=== PATIENT | female | born 1955 | race Caucasian/White ===

== ENCOUNTER 2016-06-30 10:07 | Day surgery (SDC) ==
[2013-11-08 20:41] VITALS: BMI 25.8
[2016-06-30] MEDS ORDERED: SUBLIMAZE ONE (10:45)
[2016-06-30] MEDS ORDERED: VERSED ONE (10:45)
[2016-06-30] MEDS ORDERED: DIPRIVAN 20 ML VIAL IVP ONE (10:45)
[2016-06-30] MEDS ORDERED: LIDOCAINE HCL 2% LUER-JET ONE (10:45)
[2016-06-30 12:22] VITALS: BP 122/79; TEMP 99
--- NOTE | 2016-07-01 10:46 | OP ---
PROCEDURE: EGD (ESOPHAGOGASTRODUODENOSCOPY) WITH BIOPSY. ENDOSCOPIST: Fredi BENNETT M.D. INDICATION: Reflux INSTRUMENT: GIFH-190. MEDICATION: PER ANESTHESIA. PROCEDURE: The patient was positioned for endoscopy. The oropharynx was sprayed with Cetacaine spray and the endoscope was advanced through the bite block into the esophagus and from there advanced to the duodenum. The duodenum was normal. The pylorus was patent. The antrum is normal. We took biopsies for Helicobacter. Retroflex reveals a normal cardia, small hiatus hernia, multiple fundic gland polyps are also noted all of these are in the 5mm range. The Z-line was regular at 37cm. The remaining esophagus was normal. PLAN: 1. Suggest that she continue her current medications. MTDD
--- NOTE | 2016-07-01 10:46 | OP ---
PROCEDURE: COLONOSCOPY TO THE CECUM. ENDOSCOPIST: Fredi BENNETT M.D. INDICATION: History of adenomatous polyps. Date of last colonoscopy is greater than 5 years. INSTRUMENT: Zeo-190. MEDICATION: PER ANESTHESIA. PROCEDURE: The patient was positioned for colonoscopy. The digital rectal exam was negative. The colonoscope was inserted through the anus and advanced to the cecum. The cecum was identified using the ileocecal valve and the appendiceal orifice as landmarks. The scope was slowly withdrawn through an adequately prepped colon. Careful inspection made of each colonic segment as scope withdrawn in a circumferential fashion. Care is taken to inspect the proximal side of ileocecal valves, haustral folds, flexures and rectal valves. Scattered diverticula noted in the left colon. The retroflex exam was otherwise normal. The patient's tolerated the procedure well without immediate complication. Withdrawal time 8 minutes and 36 seconds PLAN: 1. Suggest repeat colonoscopy in 5 years. MTDD
== END 2016-06-30 12:24 | disposition home or self-care (01) ==
LOC: SURG 10:07
PROVIDERS: ATTEND Internal Medicine Gastroenterology
DX: Z86.010 Personal history of colon polyps (principal); K31.7 Polyp of stomach and duodenum; K57.30 Diverticulosis of large intestine without perforation or abscess without bleeding; K21.9 Gastro-esophageal reflux disease without esophagitis; K44.9 Diaphragmatic hernia without obstruction or gangrene
CPT/HCPCS: 87339

== ENCOUNTER 2016-07-11 07:53 | Outpatient (CLI) ==
[2013-11-08 20:41] VITALS: BMI 25.8
--- NOTE | 2016-07-11 10:00 | MAMMO ---
EXAM: Digital screening mammogram HISTORY: Screening COMPARISON: 07/04/2015 FINDINGS: Digital MLO and CC views of the right and left breast were performed. There are scatter ed fibroglandular densities. Bilateral breast implants are intact. Stable benign breast calcificati ons. There is no evidence for mass, asymmetry, distortion, or suspicious calcifications in either br east. IMPRESSION: 1. No evidence of malignancy in the right or left breast. 2. Annual screening mammogram is recommended in one year. BIRADS category 2, benign
== END 2016-07-11 07:54 | disposition home or self-care (01) ==
LOC: RAD 07:53
PROVIDERS: ATTEND Family Medicine
DX: Z12.31 Encounter for screening mammogram for malignant neoplasm of breast (principal)

== ENCOUNTER 2016-08-27 13:47 | Outpatient (CLI) ==
[2013-11-08 20:41] VITALS: BMI 25.8
--- NOTE | 2016-08-27 14:23 | DI ---
EXAM: RIGHT FOOT, 3 VIEWS HISTORY: Foot swelling FINDINGS: No acute fracture or joint dislocation. There is no joint effusion. There is mild arthr opathy at the first metatarsophalangeal joint and the forefoot articulations. Soft tissues grossly unremarkable. IMPRESSION: No acute bone or joint abnormality identified radiographically.
--- NOTE | 2016-08-27 14:36 | DI ---
EXAM: Three views of the left foot. History: Left foot pain and swelling. Findings: No acute fracture or dislocation. Minimal calcaneal enthesiopathy. Mild narrowing of th e first MTP joint. Mild to moderate degenerative changes at the mid foot with prominent dorsal oste ophytes. Impression: No acute osseous abnormality. Osteoarthritis most noticeable at the mid foot.
== END 2016-08-27 13:48 | disposition home or self-care (01) ==
LOC: RAD 13:47
PROVIDERS: ATTEND Nurse Practitioner Family
DX: M79.671 Pain in right foot (principal); R22.43 Localized swelling, mass and lump, lower limb, bilateral; E75.6 Lipid storage disorder, unspecified

== ENCOUNTER 2016-08-28 11:46 | Outpatient (CLI) ==
[2013-11-08 20:41] VITALS: BMI 25.8
[2016-08-28 12:26] LABS: BASOPHILS % (AUTO) 0.8 % (0.0-3.0); EOSINOPHILS # (AUTO) 0.2 K/ul (0.0-0.7); EOSINOPHILS % (AUTO) 4.6 % (0.0-7.0); HEMATOCRIT 40.4 % (37.0-47.0); HEMOGLOBIN 13.4 g/dl (12.0-16.0); IMMATURE GRANULOCYTE % (AUTO) 0.2 % (0.0-5.0); LYMPHOCYTES # (AUTO) 1.6 K/uL (0.60-3.4); MEAN CORPUSCULAR HGB CONC 33.2 (31.8-35.4); MEAN CORPUSCULAR VOLUME 87.4 fl (81.0-99.0); MONOCYTES # (AUTO) 0.5 K/uL (0.4-2.0); NEUTROPHILS # (AUTO) 2.7 K/ul (2.0-6.9); NEUTROPHILS % (AUTO) 53.4; PLATELET COUNT 254 10^3/uL (140-440); RED BLOOD COUNT 4.62 10^6/ul (4.20-5.40)
[2016-08-28 13:22] LABS: ALBUMIN 3.8 g/dL (3.4-5.0); ALBUMIN/GLOBULIN RATIO 1.12; ANION GAP 12.8; BILIRUBIN,TOTAL 0.44 mg/dL (0.00-1.20); BUN/CREATININE RATIO 12.84; CHOL/HDL RATIO 4.8 (4.5-5.5); CREATININE 1.09 mg/dL (0.60-1.30); POTASSIUM 3.8 mmol/L (3.5-5.10); TOTAL PROTEIN 7.2 g/dL (5.8-8.1)
== END 2016-08-28 11:47 | disposition home or self-care (01) ==
LOC: LAB 11:46
PROVIDERS: ATTEND Nurse Practitioner Family
DX: M79.671 Pain in right foot (principal); R22.43 Localized swelling, mass and lump, lower limb, bilateral; E75.6 Lipid storage disorder, unspecified
CPT/HCPCS: 36415; 80053; 80061; 85025

== ENCOUNTER 2016-11-20 10:29 | Outpatient (RCR) ==
[2013-11-08 20:41] VITALS: BMI 25.8
--- NOTE | 2016-11-21 15:54 | RS.OPPTEV2 ---
Date of Note: 11/20/16 Visit #: 1 Date of Evaluation: 11/20/16 Payer Source: Medicaid Treatment Diagnosis: Low back pain, radiculopathy of lumbar region History of Condition/Mechanism of Injury:: Reports onset of radiating symptoms about two years ago when she rode in a car a very long distance. Prior Level of Function.....Patient was independent with: ADL's, Self Care, Work /Vocation, Caregiving, Ambulation/Mobility, Community Integration/Access Functional Limitations: Lifting, Sitting, Bending Current Subjective/complaints:: Patient reports having low back pain and some radiating symptoms. She reports the low back pain is constant, but the radiating symptoms are present more with prolonged sitting. States she has to move or try to change positions if she sits for very long, such as in buddhism or riding in a car. She denies any tingling or numbness in the LE's. States when she has had the radiating symptoms, they are usually more in the right LE and down the posterior aspect of the leg. States she will be riding to [place] in a car in about two weeks. Medical History Medical History: Arthritis (knees and feet) Surgical History: Cholecystectomy, Hysterectomy Surgical History Comments:: Left foot surgery X 2, Right knee surgeries X 4. Hx Home Medications: Meloxicam Patient's Goals: Her goal is to get relief of pain. Pain Assessment - Pain Description Pain Location: low back Current Pain Intensity: 3/10 Worst Pain Intensity: 7/10 Functional Outcome Measure Oswestry LBP: 32 - G Codes & Severity Modifier G Codes & Modifier: NA Source of G Code score: NA Gait - Gait Pattern General Gait Pattern Observation: No Deviations/Normal - ROM Lumbar Flexion: Hand reach to Mid-Shins Sidebending to Left: Reach to Lateral Joint Line Sidebending to Right: Reach to Lateral Joint Line Comments: No increased pain or radiating symptoms reported with lumbar AROM. Decreased mobility of the lumbar spine is observed during forward flexion. - Special Tests LATRICE Test: Negative Left, Negative Right SLR Test: Negative Left, Negative Right Seated Dural Stretch Test: Negative Left, Negative Right SI Joint Compression: Negative SI Joint Distraction: Negative Palpation Comments:: Reports tenderness over the right superior gluteal muscles. Reports no significant tenderness at either SI joint. No tenderness reported with pressure over the sacrum with the patient in sitting. Palpation to the lumbar spine demonstrates moderate increased muscle tone. Sensation - Sensation Right Lower Extremity: Intact/Normal Left Lower Extremity: Intact/Normal Additional Comments: Additional Comments: SLR bilaterally 60-65 degrees. Interventions - Exercise/Activities/Manual Therapy Exercises/Activities: Patient instructed in prone lying, flat and LUCINA for 5-10 mins. Also advised to perform standing hip extesion following any prolonged sitting. Manual Therapy: NA HOME EXERCISE PROGRAM: standing hip extension following any prolonged sitting.prone lying, flat and LUCINA for 5-10 mins. - Charges Total Direct Minutes: 45 mins Total Treatment Time: 45 mins Procedures billed for this date of service:: LUKE Low Assessment Assessment: Patient presents to therapy with a diagnosis of radiculopathy of the lumbar region. She reports constant low back pain and radiating symptoms mostly with sitting. Demonstrates hypomobility of the lumbar spine and tenderness at the superior gluteal muscles. She will benefit from exercises emphasizing lumbar extension to reduce symptoms that present to be disc related. She may also benefit from mechanical traction, manual therapy, and stretching to improve lumbar spine mobility and decrease her pain. Patient Education: Education of diagnosis, Body/Joint mechanics, Home Exercise Program, Home Safety, Education of Plan of Care Rehab Potential: Good Short Term Goals Goal #1: LE radiating symptoms localized. Goal to be met by: 12/05/16 Goal #2: Patient to demonstrates minimal lumbar muscle tone. Goal to be met by: 12/05/16 Goal #3: Pt able to tolerate prolonged sitting with minimal discomfort. Goal to be met by: 12/05/16 Legal Librarian Goals Goal #1: Patient knows HEP and to continue ex's to maintain functional level at D/C. Goal to be met by: 01/20/17 Goal #2: Score on Oswestry LBP scale improved to 12. Goal to be met by: 01/20/17 Goal #3: Patient able to tolerate prolonged sitting without discomfort. Goal to be met by: 01/20/17 Goal #4: Pt able to perform all daily activities with minimal to no LBP. Goal to be met by: 01/20/17 Plan - Treatment to be Provided Procedures: Therapeutic Exercises, Therapeutic Activity, Manual Therapy, Patient Education Modalities: Electrical Stimulation, Ultrasound/Phonophoresis, Class IV Laser, Cryotherapy, Hot Packs, Mechanical Traction (lumbar traction) - Treatment Plan Frequency: 3 X week Duration: 6 weeks ORDER # VISITS AND/OR THROUGH DATE: 01/20/17 - Treatment Code (1) Low back pain Qualifiers: Chronicity: unspecified Back pain laterality: unspecified Sciatica presence: unspecified whether sciatica present Qualified Description: Low back pain, unspecified back pain laterality, unspecified chronicity, with sciatica presence unspecified Qualifier Code(s): (M54.5) Low back pain (2) Radiculopathy, lumbar region Comments: M54.16
== END 2016-11-24 ==
PROVIDERS: ATTEND Radiology Diagnostic Radiology
DX: M54.16 Radiculopathy, lumbar region (principal)

== ENCOUNTER 2016-12-03 08:15 | Outpatient (RCR) ==
[2015-11-11 11:42] VITALS: BMI 25.8
--- NOTE | 2016-11-25 09:34 | RS.OPPTDN ---
Subjective Date of Note: 11/25/16 Visit #: 2 Date of Evaluation: 11/20/16 Payer Source: Medicaid Treatment Diagnosis: Low back pain, radiculopathy of lumbar region Current Subjective/complaints:: Reports her back pain is more on the R today, and slightly in the R gluteal area. Pain Assessment - Pain Description Pain Location: low back Pain Description: Dull, Aching Current Pain Intensity: 2.5/10 - Treatment Modality: Electrical Stim Unattended Parameters/Method Applied: 20 mins. high volt to lumbar,channel 1 @ 235 - 260 pv ,channel 2 @ 245 - 280 pv. - Heat/Cryotherapy Treatment: Hot Pack (concurrent with e-stim) Interventions - Exercise/Activities/Manual Therapy Exercises/Activities: 35 mins. total of prone exercises ,including LUCINA,prone partial push-ups,prone hip flexor stretching.Supine exercises of pelvic tilts, SKTC,DKTC,90/90 hamstring stretches,piriformis stretches. Total minutes of Exercise: 35 Manual Therapy: NA Total minutes of Manual Therapy: 0 HOME EXERCISE PROGRAM: standing hip extension following any prolonged sitting.prone lying, flat and LUCINA for 5-10 mins. - Charges Total Direct Minutes: 35 Total Treatment Time: 55 Procedures billed for this date of service:: hp,e-stim,ex 2 Assessment: Patient tolerates exercises well,reports relief with prone extension exercises.She also tolerates supine flexion exercises,with report of slight increase of pain in the R lumbar area when doing L SKTC.She has good understanding of stretch discomfort as opposed to sharp pain.He rhamstrings and hip flexors have minimal tightness present. Patient Education: Education of diagnosis, Body/Joint mechanics, Home Exercise Program, Home Safety, Activity Modification, Education of Plan of Care Short Term Goals Goal #1: LE radiating symptoms localized. Goal to be met by: 12/05/16 Progress towards Goal:: Progressing Goal #2: Patient to demonstrates minimal lumbar muscle tone. Goal to be met by: 12/05/16 Goal #3: Pt able to tolerate prolonged sitting with minimal discomfort. Goal to be met by: 12/05/16 General Store Manager Goals Goal #1: Patient knows HEP and to continue ex's to maintain functional level at D/C. Goal to be met by: 01/20/17 Progress towards goal: Progressing Goal #2: Score on Oswestry LBP scale improved to 12. Goal to be met by: 01/20/17 Goal #3: Patient able to tolerate prolonged sitting without discomfort. Goal to be met by: 01/20/17 Goal #4: Pt able to perform all daily activities with minimal to no LBP. Goal to be met by: 01/20/17 Plan PLAN OF CARE EXPIRES ON:: 01/20/17 ORDER # VISITS AND/OR THROUGH DATE: 01/20/17 PLAN: Continue Plan of Care
--- NOTE | 2016-11-27 09:45 | RS.OPPTDN ---
Subjective Date of Note: 11/27/16 Visit #: 3 Date of Evaluation: 11/20/16 Payer Source: Medicaid Treatment Diagnosis: Low back pain, radiculopathy of lumbar region Current Subjective/complaints:: Reports relief for the day of her last treatment.Yesterday was more painful,but slept better last night. Pain Assessment - Pain Description Pain Location: low back Pain Description: Dull, Aching Current Pain Intensity: not rated - Treatment Modality: Electrical Stim Unattended Parameters/Method Applied: 20 mins. high volt to back,channel 1 @ 225 - 260 pv, channel 2 @ 245 - 280 pv. Patient Position: Prone - Heat/Cryotherapy Treatment: Hot Pack (concurrent with e-stim) Interventions - Exercise/Activities/Manual Therapy Exercises/Activities: 20 mins. total of prone exercises ,including LUCINA,prone partial push-ups, .Supine exercises of pelvic tilts,SKTC,DKTC,90/90 hamstring stretches using contract-relax method,piriformis stretches. Total minutes of Exercise: 20 Manual Therapy: NA Total minutes of Manual Therapy: 0 HOME EXERCISE PROGRAM: standing hip extension following any prolonged sitting.prone lying, flat and LUCINA for 5-10 mins. - Charges Total Direct Minutes: 20 Total Treatment Time: 40 Procedures billed for this date of service:: hp,e-stim,ex 1 Assessment: Patient reports no increased back pain with stretch or strength exercises today.She has good return demo of each exercise.Her hamstring extensibility improves after contract-relax method used.She is attentive to HEP recommendations. Patient Education: Education of diagnosis, Body/Joint mechanics, Home Exercise Program, Home Safety, Activity Modification, Education of Plan of Care Patient demonstrates compliance with HEP?: Yes Short Term Goals Goal #1: LE radiating symptoms localized. Goal to be met by: 12/05/16 Progress towards Goal:: Partially Met Goal #2: Patient to demonstrates minimal lumbar muscle tone. Goal to be met by: 12/05/16 Progress towards Goal:: Progressing Goal #3: Pt able to tolerate prolonged sitting with minimal discomfort. Goal to be met by: 12/05/16 Progress towards Goal:: Progressing Cad Design Engineer Goals Goal #1: Patient knows HEP and to continue ex's to maintain functional level at D/C. Goal to be met by: 01/20/17 Progress towards goal: Progressing Goal #2: Score on Oswestry LBP scale improved to 12. Goal to be met by: 01/20/17 Goal #3: Patient able to tolerate prolonged sitting without discomfort. Goal to be met by: 01/20/17 Goal #4: Pt able to perform all daily activities with minimal to no LBP. Goal to be met by: 01/20/17 Progress towards goal: Progressing Plan PLAN OF CARE EXPIRES ON:: 01/20/17 ORDER # VISITS AND/OR THROUGH DATE: 01/20/17 PLAN: Continue Plan of Care
--- NOTE | 2016-12-01 09:17 | RS.OPPTDN ---
Subjective Date of Note: 12/01/16 Visit #: 4 Date of Evaluation: 11/20/16 Payer Source: Medicaid Treatment Diagnosis: Low back pain, radiculopathy of lumbar region Current Subjective/complaints:: Patient reports soreness is slightly elevated today,compared to last visit.She feels she possibly slept in awkward position last night. Pain Assessment - Pain Description Pain Location: low back Pain Description: Dull, Aching Current Pain Intensity: 3/10 - Treatment Modality: Electrical Stim Unattended Parameters/Method Applied: 20 mins. to back,channel 1 @ 280 - 320 pv,channel 2 @ 240 - 325 pv. Patient Position: Prone - Heat/Cryotherapy Treatment: Hot Pack (concurrent with e-stim) Interventions - Exercise/Activities/Manual Therapy Exercises/Activities: 20 mins. total of core exercises seated on therapy ball doing pelvic tilts,alternating hip flexion,alternating UE/LE flexion.Ended session doing corner stretches for pecs. stretch and trunk extension. Total minutes of Exercise: 20 Manual Therapy: NA Total minutes of Manual Therapy: 0 HOME EXERCISE PROGRAM: standing hip extension following any prolonged sitting.prone lying, flat and LUCINA for 5-10 mins. - Charges Total Direct Minutes: 20 Total Treatment Time: 40 Procedures billed for this date of service:: hp,e-stim,ex 1 Assessment: Patient tolerates exercises well,has good return demo of each.She reports her pain is localized to the back at rest.She has slight elevation of pain in the R hip while doing exercises on the therapy ball.She continues to be attentive to recommendations from the therapy staff. Patient Education: Body/Joint mechanics, Home Exercise Program Patient demonstrates compliance with HEP?: Yes Short Term Goals Goal #1: LE radiating symptoms localized. Goal to be met by: 12/05/16 Progress towards Goal:: Met Goal #2: Patient to demonstrates minimal lumbar muscle tone. Goal to be met by: 12/05/16 Progress towards Goal:: Progressing Goal #3: Pt able to tolerate prolonged sitting with minimal discomfort. Goal to be met by: 12/05/16 Progress towards Goal:: Progressing Long-Term Goals Goal #1: Patient knows HEP and to continue ex's to maintain functional level at D/C. Goal to be met by: 01/20/17 Progress towards goal: Progressing Goal #2: Score on Oswestry LBP scale improved to 12. Goal to be met by: 01/20/17 Goal #3: Patient able to tolerate prolonged sitting without discomfort. Goal to be met by: 01/20/17 Progress towards goal: Progressing Goal #4: Pt able to perform all daily activities with minimal to no LBP. Goal to be met by: 01/20/17 Progress towards goal: Progressing Plan PLAN OF CARE EXPIRES ON:: 01/20/17 ORDER # VISITS AND/OR THROUGH DATE: 01/20/17 PLAN: Progress Exercises
--- NOTE | 2016-12-02 09:30 | RS.OPPTDN ---
Subjective Date of Note: 12/02/16 Visit #: 5 Date of Evaluation: 11/20/16 Payer Source: Medicaid Treatment Diagnosis: Low back pain, radiculopathy of lumbar region Current Subjective/complaints:: Reports the back feels a little better today.She is doing her stretches. Pain Assessment - Pain Description Pain Location: low back Pain Description: Dull, Aching Current Pain Intensity: 2/10 - Treatment Modality: Electrical Stim Unattended Parameters/Method Applied: 20 mins. high volt to lumbar,channel 1 and 2 @ 225 - 245 pv. Patient Position: Prone - Heat/Cryotherapy Treatment: Hot Pack (concurrent with e - stim) Interventions - Exercise/Activities/Manual Therapy Exercises/Activities: 20 mins. total of pelvic tilts,SKTC,DKTC,90/90 hamstring stretches using contract - relax method.Seated postural exercises of trunk extension ,combined with rowing motion,postural pullbacks. Total minutes of Exercise: 20 Manual Therapy: NA Total minutes of Manual Therapy: 0 HOME EXERCISE PROGRAM: standing hip extension following any prolonged sitting.prone lying, flat and LUCINA for 5-10 mins. - Charges Total Direct Minutes: 20 Total Treatment Time: 40 Procedures billed for this date of service:: hp,e-stim,ex 1 Assessment: Patient reports less back pain today,is tolerating daily tasks better,depending upon the position she is in,or how long the tasks takes to complete.She does have improved awareness of her posture. Patient Education: Body/Joint mechanics, Home Exercise Program, Education of Plan of Care Patient demonstrates compliance with HEP?: Yes Short Term Goals Goal #1: LE radiating symptoms localized. Goal to be met by: 12/05/16 Progress towards Goal:: Met Goal #2: Patient to demonstrates minimal lumbar muscle tone. Goal to be met by: 12/05/16 Progress towards Goal:: Progressing Goal #3: Pt able to tolerate prolonged sitting with minimal discomfort. Goal to be met by: 12/05/16 Progress towards Goal:: Progressing Prison Goals Goal #1: Patient knows HEP and to continue ex's to maintain functional level at D/C. Goal to be met by: 01/20/17 Progress towards goal: Partially Met Goal #2: Score on Oswestry LBP scale improved to 12. Goal to be met by: 01/20/17 Goal #3: Patient able to tolerate prolonged sitting without discomfort. Goal to be met by: 01/20/17 Progress towards goal: Progressing Goal #4: Pt able to perform all daily activities with minimal to no LBP. Goal to be met by: 01/20/17 Progress towards goal: Progressing Plan PLAN OF CARE EXPIRES ON:: 01/20/17 ORDER # VISITS AND/OR THROUGH DATE: 01/20/17 PLAN: Continue Plan of Care
--- NOTE | 2016-12-03 09:34 | RS.OPPTDC ---
Date of Discharge: 12/03/16 Date of Evaluation: 11/20/16 Number of Visits: 6 Treatment Diagnosis: Low back pain, radiculopathy of lumbar region Current Level of Function: Independent in community with intermittent back pain. Current Complaints/Gains: Patient reports the stretch exercises help give her relief.She also has TENS unit at home.She is aware of D/c plan today. Pain Assessment - Pain Description Pain Location: low back Pain Description: Dull, Aching Current Pain Intensity: 2/10 Functional Outcome Measure Oswestry LBP: 24 - G Codes & Severity Modifier G Codes & Modifier: NA Source of G Code score: NA Observation - Observation Posture: Normal Gait - Gait Pattern General Gait Pattern Observation: No Deviations/Normal - Treatment Modality: Electrical Stim Unattended Parameters/Method Applied: 20 mins. @ 260 pv to low back. Patient Position: Prone - Heat/Cryotherapy Treatment: Hot Pack (concurrent with e-stim) Interventions - Exercise/Activities/Manual Therapy Exercises/Activities: 5 mins. HEP review. Total minutes of Exercise: 5 Manual Therapy: NA Total minutes of Manual Therapy: 0 HOME EXERCISE PROGRAM: standing hip extension following any prolonged sitting.prone lying, flat and LUCINA for 5-10 mins. - Charges Total Direct Minutes: 5 Total Treatment Time: 25 Procedures billed for this date of service:: hp,e-stim Assessment Assessment: Patient has met rehab potential currently,with good understanding of HEP ,and this can be done independently.She enters /exits clinic with normal posture and gait pattern. Patient Education: Education of diagnosis, Body/Joint mechanics, Home Exercise Program, Home Safety, Activity Modification, Education of Plan of Care Rehab Potential: Good Short Term Goals Goal #1: LE radiating symptoms localized. Goal to be met by: 12/05/16 Progress towards Goal:: Met Goal #2: Patient to demonstrates minimal lumbar muscle tone. Goal to be met by: 12/05/16 Progress towards Goal:: Met Goal #3: Pt able to tolerate prolonged sitting with minimal discomfort. Goal to be met by: 12/05/16 Progress towards Goal:: Partially Met Care Home Goals Goal #1: Patient knows HEP and to continue ex's to maintain functional level at D/C. Goal to be met by: 01/20/17 Progress towards goal: Met Goal #2: Score on Oswestry LBP scale improved to 12. Goal to be met by: 01/20/17 Progress towards goal: Met Goal #3: Patient able to tolerate prolonged sitting without discomfort. Goal to be met by: 01/20/17 Progress towards goal: Progressing Goal #4: Pt able to perform all daily activities with minimal to no LBP. Goal to be met by: 01/20/17 Progress towards goal: Progressing Plan Reason for Discharge:: No Further Skilled Therapy Indicated
== END 2016-12-25 ==
PROVIDERS: ATTEND Radiology Diagnostic Radiology
DX: M54.16 Radiculopathy, lumbar region (principal)

== ENCOUNTER 2017-01-02 09:48 | Outpatient (CLI) ==
[2015-11-11 11:42] VITALS: BMI 25.8
--- NOTE | 2017-01-02 10:16 | DI ---
EXAM: Radiographs, left elbow HISTORY: Left elbow lateral epicondylitis. COMPARISON: None available. TECHNIQUE: Three views. FINDINGS: Bone mineralization is normal. There is no fracture or dislocation. The joint spaces ar e maintained. No focal soft tissue abnormality is seen. IMPRESSION: No radiographic abnormality of the left elbow.
== END 2017-01-02 09:49 | disposition home or self-care (01) ==
LOC: RAD 09:48
PROVIDERS: ATTEND Nurse Practitioner Family
DX: M77.12 Lateral epicondylitis, left elbow (principal)

== ENCOUNTER 2017-01-14 08:30 | Outpatient (CLI) ==
[2015-11-11 11:42] VITALS: BMI 25.8
[2017-01-14 08:54] LABS: BASOPHILS % (AUTO) 0.6 % (0.0-3.0); EOSINOPHILS # (AUTO) 0.3 K/ul (0.0-0.7); EOSINOPHILS % (AUTO) 4.9 % (0.0-7.0); HEMATOCRIT 38.7 % (37.0-47.0); HEMOGLOBIN 12.8 g/dl (12.0-16.0); IMMATURE GRANULOCYTE % (AUTO) 0.4 % (0.0-5.0); LYMPHOCYTES # (AUTO) 1.7 K/uL (0.60-3.4); LYMPHOCYTES % (AUTO) 32.8 (10.0-50.0); MEAN CORPUSCULAR HEMOGLOBIN 29.6 pg (27.0-31.0); MEAN CORPUSCULAR HGB CONC 33.1 (31.8-35.4); MEAN CORPUSCULAR VOLUME 89.6 fl (81.0-99.0); MONOCYTES # (AUTO) 0.4 K/uL (0.4-2.0); MONOCYTES % (AUTO) 8.1 (0-10); NEUTROPHILS # (AUTO) 2.8 K/ul (2.0-6.9); NEUTROPHILS % (AUTO) 53.2; PLATELET COUNT 297 10^3/uL (140-440); RED BLOOD COUNT 4.32 10^6/ul (4.20-5.40); WHITE BLOOD COUNT 5.31 K/ul (4.6-10.2)
[2017-01-14 09:12] LABS: ANION GAP 12.6; BUN/CREATININE RATIO 13.07; CALCIUM 10.9 mg/dL (8.2-10.2); CREATININE 1.3 mg/dL (0.60-1.30); POTASSIUM 3.6 mmol/L (3.5-5.10); URIC ACID 7.8 mg/dL (2.4-6.0)
[2017-01-14 10:51] LABS: ERYTHROCYTE SEDIMENTATION RATE 14 mm/hr (0-20); ESR INTERNAL QC INTERNAL QC VALID
== END 2017-01-14 08:31 | disposition home or self-care (01) ==
LOC: LAB 08:30
DX: R60.9 Edema, unspecified (principal)
CPT/HCPCS: 36415; 80048; 84550; 85025; 85651; 86140

== ENCOUNTER 2017-04-23 09:00 | Outpatient (RCR) ==
[2015-11-11 11:42] VITALS: BMI 25.8
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
--- NOTE | 2017-04-21 13:46 | RS.OPPTDN ---
Subjective Date of Note: 04/21/17 Visit #: 2 Date of Evaluation: 04/16/17 Payer Source: Medicaid Treatment Diagnosis: Right knee pain Current Subjective/complaints:: Patient continues to report pain at the medial aspect of the right knee joint. Pain Assessment - Pain Description Pain Location: Right medial knee joint Pain Description: Aching - Treatment Modality: Ultrasound Parameters/Method Applied: [id number] at 1.5w/cm2 with 10% hydrocortisone cream to the right knee medial joint line prior to EX. Patient Position: Supine Interventions - Exercise/Activities/Manual Therapy Exercises/Activities: Assisted stretching of right hamstrings, SKTC, and heel cords. Quad sets. SLR and SLR/VMO. Isometric right ankle df. Red theraband for right ankle df, hip add and hip abd, all 2s/10reps. Ended with additional hamstring stretching. Reveiwed dx, joint mechanics, and HEP. Total minutes of Exercise: 30mins Manual Therapy: NA HOME EXERCISE PROGRAM: multi angle SLR's: flexion, adduction, and abduction, and hip adduction isometrics. Quad sets, SLR, SLR/VMO - Charges Timed Code Treatment Minutes: 40mins Total Treatment Time: 45mins Procedures billed for this date of service:: US, EX2 Assessment: Patient motivated to progress exercise. Patient Education: Education of diagnosis, Body/Joint mechanics, Home Exercise Program Patient demonstrates compliance with HEP?: Yes Short Term Goals Goal #1: Right active flexion to 120 degrees. Goal to be met by: 05/01/17 Progress towards Goal:: Progressing Goal #2: Right quad strength 4+/5. Goal to be met by: 05/01/17 Goal #3: Right HS strength 4+/5. Goal to be met by: 05/01/17 Spd Manager Goals Goal #1: Patient knows HEP and to continue ex's to maintain functional level at D/C. Goal to be met by: 05/27/17 Progress towards goal: Progressing Goal #2: Score on LE functional scale improved to 60/80. Goal to be met by: 05/27/17 Goal #3: Pt able to descend stairs without difficulty or right knee pain. Goal to be met by: 05/27/17 Goal #4: Pt will tolerate amb community distances w/o limitation from right knee. Goal to be met by: 05/27/17 Plan PLAN OF CARE EXPIRES ON:: 05/27/17 ORDER # VISITS AND/OR THROUGH DATE: 05/27/17 PLAN: Continue modalities and progresxs exercise to reduce pain and increase functional activity level.
--- NOTE | 2017-04-23 11:39 | RS.OPPTDN ---
Subjective Date of Note: 04/23/17 Visit #: 3 Date of Evaluation: 04/16/17 Payer Source: Medicaid Treatment Diagnosis: Right knee pain Current Subjective/complaints:: Patient reports she is working on HEP. States she continues to have discomfort with full active right knee ROM due to popping. States first US treatment seemed to reduce discomfort. Pain Assessment - Pain Description Pain Location: Right knee Pain Description: Sharp, Aching Current Pain Intensity: moderate - Treatment Modality: Ultrasound Parameters/Method Applied: [id number] at 1.5w/cm2 to the right knee joint with focus on medial joint line prior to EX. Patient Position: Supine Interventions - Exercise/Activities/Manual Therapy Exercises/Activities: Assisted stretching of right hamstrings, SKTC, and heel cords. Quad sets, SLR and SLR/VMO, all 3s/10reps. Isometric hip add with ball and right ankle df with manual resistance. Red theraband for right ankle df 2s/ 10reps. Red theraband for ham curl, hip add and hip abd, all 2s/10reps. Ended with additional hamstring stretching. Reveiwed dx, joint mechanics, and HEP. Total minutes of Exercise: 30mins Manual Therapy: NA HOME EXERCISE PROGRAM: multi angle SLR's: flexion, adduction, and abduction, and hip adduction isometrics. Quad sets, SLR, SLR/VMO - Charges Timed Code Treatment Minutes: 40mins Total Treatment Time: 45mins Procedures billed for this date of service:: US, EX2 Assessment: Patient continues to have mod pain medial right knee joint, but she is able to progress strengthening. Patient Education: Body/Joint mechanics, Home Exercise Program Patient demonstrates compliance with HEP?: Yes Short Term Goals Goal #1: Right active flexion to 120 degrees. Goal to be met by: 05/01/17 Progress towards Goal:: Progressing Comments:: Passive right knee flexion to 120 degrees. Goal #2: Right quad strength 4+/5. Goal to be met by: 05/01/17 Progress towards Goal:: Progressing Goal #3: Right HS strength 4+/5. Goal to be met by: 05/01/17 Progress towards Goal:: Progressing Fdc Goals Goal #1: Patient knows HEP and to continue ex's to maintain functional level at D/C. Goal to be met by: 05/27/17 Progress towards goal: Progressing Goal #2: Score on LE functional scale improved to 60/80. Goal to be met by: 05/27/17 Goal #3: Pt able to descend stairs without difficulty or right knee pain. Goal to be met by: 05/27/17 Goal #4: Pt will tolerate amb community distances w/o limitation from right knee. Goal to be met by: 05/27/17 Plan PLAN OF CARE EXPIRES ON:: 05/27/17 ORDER # VISITS AND/OR THROUGH DATE: 05/27/17 PLAN: Continue modalities and progress exercise to reduce pain and increase functional activity level.
== END 2017-04-26 ==
PROVIDERS: ATTEND Physician Assistant Surgical
DX: S83.91XA Sprain of unspecified site of right knee, initial encounter (principal)

== ENCOUNTER 2017-05-07 09:00 | Outpatient (RCR) ==
[2017-01-02 09:54] VITALS: BMI 25.8
--- NOTE | 2017-05-01 10:41 | RS.OPPTDN ---
Subjective Date of Note: 05/01/17 Visit #: 4 Date of Evaluation: 04/16/17 Payer Source: Medicaid Treatment Diagnosis: Right knee pain Current Subjective/complaints:: Patient reports a mild reduction in right medial knee joint pain. Patient reports she is working on HEP. Pain Assessment - Pain Description Pain Location: Right knee medial joint line Current Pain Intensity: mild to mod - Treatment Modality: Ultrasound Parameters/Method Applied: [id number] at 1.5w/cm2 with 10% hydrocortisone cream to the right knee medial joint prior to EX. Patient Position: Supine Interventions - Exercise/Activities/Manual Therapy Exercises/Activities: Assisted stretching of right hamstrings, SKTC, and heel cords. Quad sets, SLR and SLR/VMO, all increased to 4s/10reps. Isometric hip add with ball. Began isometric ankle inversion with ball. Red theraband for right ankle df 3s/10reps. Red theraband for ham curl, hip add and hip abd(with knee in full extension), all 2s/10reps. Ended with additional hamstring stretching. Patient education of joint mechanics and avoiding weight-bearing and twisting on right LE. Reveiwed HEP and patient given copy of new exercises. Total minutes of Exercise: 35mins Manual Therapy: NA HOME EXERCISE PROGRAM: multi angle SLR's: flexion, adduction, and abduction, and hip adduction isometrics. Quad sets, SLR, SLR/VMO - Objective Findings Observations,measurements,etc.: Demos full right knee extension and passive knee flexion to approx 120 degrees. Patient consistently has popping beneath the right patella with extension following end range flexion. - Charges Timed Code Treatment Minutes: 45mins Total Treatment Time: 48mins Procedures billed for this date of service:: US, EX2 Assessment: Patient demos improvement in ROM of the right knee and reports mild reduction in pain. Patient Education: Body/Joint mechanics, Home Exercise Program, Home Safety, Activity Modification Patient demonstrates compliance with HEP?: Yes Short Term Goals Goal #1: Right active flexion to 120 degrees. Goal to be met by: 05/01/17 Progress towards Goal:: Partially Met Goal #2: Right quad strength 4+/5. Goal to be met by: 05/01/17 Progress towards Goal:: Progressing Goal #3: Right HS strength 4+/5. Goal to be met by: 05/01/17 Progress towards Goal:: Progressing Software Application Tester Goals Goal #1: Patient knows HEP and to continue ex's to maintain functional level at D/C. Goal to be met by: 05/27/17 Progress towards goal: Partially Met Goal #2: Score on LE functional scale improved to 60/80. Goal to be met by: 05/27/17 Goal #3: Pt able to descend stairs without difficulty or right knee pain. Goal to be met by: 05/27/17 Goal #4: Pt will tolerate amb community distances w/o limitation from right knee. Goal to be met by: 05/27/17 Plan PLAN OF CARE EXPIRES ON:: 05/27/17 ORDER # VISITS AND/OR THROUGH DATE: 05/27/17 PLAN: Continue modalities and progress exercise to reduce pain and increase functional activity level.
--- NOTE | 2017-05-05 12:19 | RS.OPPTDN ---
Subjective Date of Note: 05/05/17 Visit #: 5 Date of Evaluation: 04/16/17 Payer Source: Medicaid Treatment Diagnosis: Right knee pain Current Subjective/complaints:: Patient says she is unable to tell any difference in her pain. She c/o swelling to bilateral ankles at the lateral aspect only. She says she has had negative xrays. - Treatment Modality: Ultrasound Parameters/Method Applied: hydrocortisone @ 1.5 w/cm2 x 10 mins to the medial R knee Patient Position: Supine Interventions - Exercise/Activities/Manual Therapy Exercises/Activities: Assisted stretching of right hamstrings, SKTC, and heel cords. Quad sets, SLR and SLR/VMO, all increased to 4s/10reps. Isometric hip add with ball. Began isometric ankle inversion with ball. Red theraband for right ankle df 3s/10reps. Red theraband for ham curl, hip add and hip abd(with knee in full extension), all 2s/10reps. Ended with additional hamstring stretching. Patient education of joint mechanics and avoiding weight-bearing and twisting on right LE. Reveiwed HEP and patient given copy of new exercises. Total minutes of Exercise: 26 Manual Therapy: NA HOME EXERCISE PROGRAM: multi angle SLR's: flexion, adduction, and abduction, and hip adduction isometrics. Quad sets, SLR, SLR/VMO - Charges Timed Code Treatment Minutes: 36 Total Treatment Time: 36 Procedures billed for this date of service:: u/s, ex2 Assessment: Patient has verbalized no change in symptoms since her last session , but inquired and appeared to be interested in trying Laser next session. R knee motion seems to be increasing. Bilateral ankle swelling to the lateral aspect and tender. All therex lei well and without c/o's. Patient Education: Education of diagnosis, Home Exercise Program Patient demonstrates compliance with HEP?: Yes Short Term Goals Goal #1: Right active flexion to 120 degrees. Goal to be met by: 05/01/17 Progress towards Goal:: Partially Met Goal #2: Right quad strength 4+/5. Goal to be met by: 05/01/17 Progress towards Goal:: Progressing Goal #3: Right HS strength 4+/5. Goal to be met by: 05/01/17 Progress towards Goal:: Progressing Custodial Goals Goal #1: Patient knows HEP and to continue ex's to maintain functional level at D/C. Goal to be met by: 05/27/17 Progress towards goal: Partially Met Goal #2: Score on LE functional scale improved to 60/80. Goal to be met by: 05/27/17 Goal #3: Pt able to descend stairs without difficulty or right knee pain. Goal to be met by: 05/27/17 Goal #4: Pt will tolerate amb community distances w/o limitation from right knee. Goal to be met by: 05/27/17 Plan PLAN OF CARE EXPIRES ON:: 05/27/17 ORDER # VISITS AND/OR THROUGH DATE: 05/27/17 PLAN: Patient to continue and may try Laser to verify any symptom change.
--- NOTE | 2017-05-07 11:01 | RS.OPPTDN ---
Subjective Date of Note: 05/07/17 Visit #: 6 Date of Evaluation: 04/16/17 Payer Source: Medicaid Treatment Diagnosis: Right knee pain Current Subjective/complaints:: Patient says she is interested in trying Laser because she is having no change in symptoms. Pain Assessment - Pain Description Pain Location: Medial R knee - Treatment Modality: Class 4 Laser Parameters/Method Applied: Chronic Knee Pain Program x 3 cycles @ 6 mins each to the medial aspect of R knee Patient Position: Supine Interventions - Exercise/Activities/Manual Therapy Exercises/Activities: Assisted stretching of right hamstrings, SKTC, and heel cords. Quad sets, SLR and SLR/VMO, all increased to 4s/10reps. Isometric hip add with ball. Continued with isometric ankle inversion with ball. Red theraband for right ankle df 3s/10reps. Red theraband for ham curl, hip add and hip abd(with knee in full extension), all 2s/10reps. Ended with additional hamstring stretching. Education on Laser and benefits. Total minutes of Exercise: 33 Manual Therapy: NA HOME EXERCISE PROGRAM: multi angle SLR's: flexion, adduction, and abduction, and hip adduction isometrics. Quad sets, SLR, SLR/VMO - Charges Timed Code Treatment Minutes: 41 Total Treatment Time: 41 Procedures billed for this date of service:: NO CHARGE LASER, EX2 Assessment: Patient has completed presumed authorized visits. Patient will notify us if she receives an approved letter before dates . No real change in pain and she is independent with stretches and general strengthening. If laser is helpful, she may return to only have laser and self pay. Patient Education: Body/Joint mechanics, Home Exercise Program, Education of Plan of Care Patient demonstrates compliance with HEP?: Yes Short Term Goals Goal #1: Right active flexion to 120 degrees. Goal to be met by: 05/01/17 Progress towards Goal:: Partially Met Goal #2: Right quad strength 4+/5. Goal to be met by: 05/01/17 Progress towards Goal:: Progressing Goal #3: Right HS strength 4+/5. Goal to be met by: 05/01/17 Progress towards Goal:: Progressing Fci Goals Goal #1: Patient knows HEP and to continue ex's to maintain functional level at D/C. Goal to be met by: 05/27/17 Progress towards goal: Partially Met Goal #2: Score on LE functional scale improved to 60/80. Goal to be met by: 05/27/17 Goal #3: Pt able to descend stairs without difficulty or right knee pain. Goal to be met by: 05/27/17 Goal #4: Pt will tolerate amb community distances w/o limitation from right knee. Goal to be met by: 05/27/17 Plan PLAN OF CARE EXPIRES ON:: 05/27/17 ORDER # VISITS AND/OR THROUGH DATE: 05/27/17 PLAN: hold until we receive approval letter or if she chooses to receive laser only and self pay.
== END 2017-05-27 ==
PROVIDERS: ATTEND Physician Assistant Surgical
DX: S83.91XA Sprain of unspecified site of right knee, initial encounter (principal)

== ENCOUNTER 2017-07-14 08:45 | Outpatient (CLI) ==
[2017-01-02 09:54] VITALS: BMI 25.8
--- NOTE | 2017-07-15 10:07 | MAMMO ---
EXAM: Digital screening mammogram with tomosynthesis HISTORY: Screening COMPARISON: 07/11/2016 dating to 06/10/2013 FINDINGS: Digital MLO and CC views of the right and left breast were performed. Tomosynthesis was performed. Computer aided detection utilized. There are scattered fibroglandular densities. Benign bilateral calcifications. There is no evidence for suspicious mass, asymmetry, distortion, or calcif ications in either breast. IMPRESSION: 1. No evidence of malignancy in the right or left breast. 2. Annual screening mammogram is recommended in one year. BIRADS category 2, benign
== END 2017-07-14 08:46 | disposition home or self-care (01) ==
LOC: RAD 08:45
PROVIDERS: ATTEND Registered Nurse
DX: Z12.31 Encounter for screening mammogram for malignant neoplasm of breast (principal)
CPT/HCPCS: 77067

== ENCOUNTER 2017-09-15 09:17 | Outpatient (CLI) ==
[2017-01-02 09:54] VITALS: BMI 25.8
== END 2017-09-15 09:18 | disposition home or self-care (01) ==
LOC: LAB 09:17
PROVIDERS: ATTEND Nurse Practitioner
DX: E78.2 Mixed hyperlipidemia (principal); F41.9 Anxiety disorder, unspecified; M25.50 Pain in unspecified joint; M25.522 Pain in left elbow; M25.571 Pain in right ankle and joints of right foot; M25.572 Pain in left ankle and joints of left foot; R20.0 Anesthesia of skin; R20.2 Paresthesia of skin; Z86.2 Personal history of diseases of the blood and blood-forming organs and certain disorders involving the immune mechanism
CPT/HCPCS: 36415; 80053; 80061; 82607; 84443; 85025; 86038; 86430

== ENCOUNTER 2017-10-01 15:35 | Outpatient (CLI) ==
[2017-01-02 09:54] VITALS: BMI 25.8
--- NOTE | 2017-10-01 17:25 | DI ---
EXAM: Right foot three view HISTORY: Joint pain COMPARISON: None FINDINGS: No fracture or dislocation. Small plantar calcaneal spur. Mild osteoarthritis first MTP joint. Mild scattered osteoarthritis of the forefoot. Mild to moderate osteoarthritis of the midfoo t. No focal soft tissue abnormality. IMPERSSION: 1. Osteoarthritis. 2. Small plantar calcaneal spur.
--- NOTE | 2017-10-01 17:26 | DI ---
EXAM: Right ankle three view HISTORY: Joint pain COMPARISON: None FINDINGS: No fracture or dislocation. Ankle mortise symmetric. Chronic well corticated ossificatio n near the distal tibia may be due to old trauma or degenerative change. Small plantar calcaneal spu r. Osteoarthritis of the midfoot. IMPERSSION: 1. No fracture or dislocation. 2. Chronic and degenerative changes as described.
--- NOTE | 2017-10-01 17:28 | DI ---
EXAM: Three-view left ankle COMPARISON: None HISTORY: Trauma and pain FINDINGS: There is no acute fracture or dislocation. Alignment is anatomic. Joint spaces are well p reserved. Ankle mortise is intact. There are a few calcaneal spurs. There is no soft tissue swellin g. No unexpected radio-opaque foreign bodies. IMPRESSION: No acute osseous abnormality.
--- NOTE | 2017-10-01 17:29 | DI ---
EXAM: Radiographs, left foot HISTORY: Left foot pain. COMPARISON: 08/27/2016. TECHNIQUE: Three views. FINDINGS: Bone mineralization is decreased. No fracture or dislocation detected. Joint space narro wing and marginal osteophyte formation at the first and second MTP joint and scattered IP joints note d, mild to moderate in degree. There is mild to moderate dorsal spurring in the midfoot. Small calc aneal spurs are present. No erosions are seen. Soft tissues are unremarkable. Since the prior stud y, findings are not significantly changed. IMPRESSION: Stable mild to moderate osteoarthritis..
== END 2017-10-01 15:36 | disposition home or self-care (01) ==
LOC: RAD 15:35
PROVIDERS: ATTEND Nurse Practitioner
DX: G43.909 Migraine, unspecified, not intractable, without status migrainosus (principal); M25.579 Pain in unspecified ankle and joints of unspecified foot; R20.0 Anesthesia of skin
CPT/HCPCS: 36415; 81001; 82306; 84550

== ENCOUNTER 2017-10-30 15:03 | Outpatient (CLI) ==
[2017-01-02 09:54] VITALS: BMI 25.8
== END 2017-10-30 15:04 | disposition home or self-care (01) ==
LOC: LAB 15:03
PROVIDERS: ATTEND Nurse Practitioner
DX: E53.8 Deficiency of other specified B group vitamins (principal); M10.9 Gout, unspecified
CPT/HCPCS: 36415; 82607; 84550

== ENCOUNTER 2018-01-15 08:49 | Outpatient (CLI) ==
[2017-01-02 09:54] VITALS: BMI 25.8
== END 2018-01-15 08:50 | disposition home or self-care (01) ==
LOC: LAB 08:49
PROVIDERS: ATTEND Nurse Practitioner
DX: E78.2 Mixed hyperlipidemia (principal); M1A.9XX0 Chronic gout, unspecified, without tophus (tophi); M25.50 Pain in unspecified joint; M25.571 Pain in right ankle and joints of right foot
CPT/HCPCS: 36415; 80048; 80076; 84550

== ENCOUNTER 2018-05-24 11:45 | Outpatient (CLI) ==
[2017-01-02 09:54] VITALS: BMI 25.8
--- NOTE | 2018-05-24 14:33 | DI ---
Exam: Two views of the chest. Comparison: 10/23/2015. Reason for exam: Cough. FINDINGS: No pneumothorax, pleural effusion, or focal consolidation. The cardiac silhouette is not enlarged. The imaged osseous structures appear grossly unremarkable without acute fracture. Impression: No acute cardiopulmonary process.
== END 2018-05-24 11:46 | disposition home or self-care (01) ==
LOC: RAD 11:45
PROVIDERS: ATTEND Nurse Practitioner
DX: R05 Cough (principal)

== ENCOUNTER 2018-07-27 09:37 | Outpatient (CLI) ==
[2017-01-02 09:54] VITALS: BMI 25.8
--- NOTE | 2018-07-28 10:18 | MAMMO ---
EXAM: Digital screening mammogram with tomosynthesis HISTORY: Screening COMPARISON: 07/14/2017 FINDINGS: Digital MLO and CC views of the right and left breast were performed. Tomosynthesis was performed. Computer aided detection utilized. There are scattered fibroglandular densities. Bilate ral breast implants. Benign calcifications in the right breast. There is no evidence for mass, asym metry, distortion, or suspicious calcifications in either breast. IMPRESSION: 1. No evidence of malignancy in the right or left breast. 2. Annual screening mammogram is recommended in one year. BIRADS category 2, benign
== END 2018-07-27 09:38 | disposition home or self-care (01) ==
LOC: RAD 09:37
PROVIDERS: ATTEND Obstetrics & Gynecology Gynecologic Oncology
DX: Z12.31 Encounter for screening mammogram for malignant neoplasm of breast (principal)

== ENCOUNTER 2018-09-02 09:22 | Outpatient (CLI) ==
[2017-01-02 09:54] VITALS: BMI 25.8
--- NOTE | 2018-09-02 10:14 | US ---
EXAM: Renal ultrasound. History: Right flank pain. Technique: Multiple sonographic images through the kidneys were obtained. Color duplex Doppler was used to interrogate vascular flow. Findings: Neither ureteral jet was seen in the bladder. No focal bladder wall thickening. The right kidney measures 9.9 cm in long length demonstrating normal cortical echogenicity without ev idence for hydronephrosis, mass or shadowing calculus. A few nonshadowing hyperechoic foci seen with in the right kidney with the largest measuring 5 mm. The left kidney measures 10.5 cm in long length demonstrating normal cortical echogenicity without ev idence for hydronephrosis or shadowing calculi. There are several cystic lesions of the left kidney with the largest being complex and measuring 1.7 cm. Impression: 1. No hydronephrosis. 2. Complex cystic lesions of the left kidney are indeterminate. Recommend further evaluation with M [facility] renal mass protocol.
== END 2018-09-02 09:23 | disposition home or self-care (01) ==
LOC: RAD 09:22
PROVIDERS: ATTEND Nurse Practitioner
DX: R10.9 Unspecified abdominal pain (principal)

== ENCOUNTER 2018-09-15 08:10 | Outpatient (CLI) ==
[2017-01-02 09:54] VITALS: BMI 25.8
--- NOTE | 2018-09-15 12:52 | MRI ---
EXAM: MRI abdomen without and with contrast HISTORY: Other disorder of kidney TECHNIQUE: Multiplanar, multisequence without and following the administration of intravenous Dotare m, 15mL COMPARISON: Abdominal sonogram from 09/02/2018 FINDINGS: The heart size is normal. Bilateral breast implants are grossly intact in their visualize d portions. The hepatic signal density is grossly normal. No hepatic lesions are evident. There is no evidence of hepatic steatosis. The portal and the hepatic veins are patent. The spleen has normal size and s ignal intensity. Pancreas is normal signal enhancement. The gallbladder is surgically absent. The common bile duct is dilated up to 10.5 mm. No choledocholithiasis is appreciated. The pancreatic eliseo t has normal caliber. There is suggestion of pancreatic divisum. Simple acquired bilateral renal cysts are detected. No suspicious renal lesions are evident. No ure teral pelvicaliectasis. The visible intestines have normal signal caliber without evidence of obstruction or acute inflammati on. The aorta has normal caliber and flow signal. No lymphadenopathy or ascites are appreciated. The bone marrow signal intensity is normal. IMPRESSION: 1. Simple acquired renal cysts. No suspicious renal lesions. 2. No lymphadenopathy or ascites. 3. Suggestion of pancreatic divisum. 4. Previous cholecystectomy with mild extrahepatic biliary dilatation up to 10.5 mm.
== END 2018-09-15 08:11 | disposition home or self-care (01) ==
LOC: RAD 08:10
PROVIDERS: ATTEND Nurse Practitioner
DX: N28.89 Other specified disorders of kidney and ureter (principal)
CPT/HCPCS: 36415; 82565

== ENCOUNTER 2021-06-27 15:10 | Inpatient (IN) ==
[2021-06-27 17:00] LABS: ALANINE AMINOTRANSFERASE 20.6 U/L (0-35); ALBUMIN 4.58 g/dL (3.5-5.0); ALKALINE PHOSPHATASE 101.2 U/L (53-141); ASPARTATE AMINO TRANSFERASE 24.5 U/L (14-36); BASOPHILS % (AUTO) 0.3 % (0.0-3.0); BILIRUBIN,TOTAL 0.42 mg/dL (0.2-1.3); BLOOD UREA NITROGEN 20.7 mg/dL (7-17); CARBON DIOXIDE 22.1 mmol/L (22-30.0); CHLORIDE 110.3 mmol/L (98-107); CREATINE KINASE 77.6 U/L (30-135); CREATININE 0.99 mg/dL (0.60-1.30); EOSINOPHILS % (AUTO) 0.4 % (0.0-7.0); GLUCOSE 108.3 mg/dL (74-106); HEMOGLOBIN 12.3 g/dl (12.0-16.0); IMMATURE GRANULOCYTE % (AUTO) 0.3 % (0.0-5.0); LYMPHOCYTES # (AUTO) 1.3 K/uL (0.60-3.4); LYMPHOCYTES % (AUTO) 17.6 (10.0-50.0); MEAN CORPUSCULAR HEMOGLOBIN 29.4 pg (27.0-31.0); MEAN CORPUSCULAR HGB CONC 33.2 (31.8-35.4); MEAN CORPUSCULAR VOLUME 88.5 fl (81.0-99.0); MONOCYTES # (AUTO) 0.4 K/uL (0.4-2.0); MONOCYTES % (AUTO) 4.9 (0-10); NEUTROPHILS # (AUTO) 5.8 K/ul (2.0-6.9); NEUTROPHILS % (AUTO) 76.5 % (42.2-75.2); PLATELET COUNT 260 10^3/uL (140-440); POTASSIUM 3.91 mmol/L (3.5-5.1); RDW COEFFICIENT OF VARIATION 13.7 % (11.6-14.8); RED BLOOD COUNT 4.18 10^6/ul (4.20-5.40); SODIUM 139.6 mmol/L (134.5-145); TOTAL PROTEIN 7.38 g/dL (6.3-8.2); TROPONIN I < 0.012 ng/ml (0.0000-0.120)
[2021-06-27] MEDS ORDERED: ASPIRIN CHEWABLE PO ONE (17:15)
[2021-06-27] MEDS ORDERED: TORADOL IVP ONE (17:31)
[2021-06-27] MEDS ORDERED: DECADRON IVP ONE (17:32)
[2021-06-27] MEDS: LOVENOX SUBCUT SCH (17:49)
[2021-06-27] MEDS ORDERED: PRILOSEC PO SCH (18:30)
[2021-06-27 20:37] VITALS: BMI 25.3
[2021-06-27] MEDS ORDERED: WELLBUTRIN XL PO SCH (21:00)
[2021-06-27 23:15] LABS: CREATINE KINASE 59.4 U/L (30-135)
[2021-06-27 23:28] LABS: TROPONIN I < 0.012 ng/ml (0.0000-0.120)
[2021-06-28] MEDS ORDERED: ZANAFLEX PO PRN (02:34)
[2021-06-28] MEDS ORDERED: NEURONTIN PO SCH (03:00)
--- NOTE | 2021-06-28 07:42 | DI ---
EXAM: Chest, single view HISTORY: Chest pain COMPARISON: 01/17/2020 FINDINGS / IMPRESSION: The heart size appears stable. Hazy opacity overlies the lateral aspect of t he left diaphragm. This may represent atelectasis. A small area of pneumonia is not excluded. The lungs are otherwise well aerated. No pleural effusion. No pneumothorax.
[2021-06-28] MEDS ORDERED: PRILOSEC PO SCH (08:00)
[2021-06-28 08:05] LABS: BASOPHILS % (AUTO) 0.3 % (0.0-3.0); HEMATOCRIT 35.2 % (37.0-47.0); HEMOGLOBIN 11.6 g/dl (12.0-16.0); IMMATURE GRANULOCYTE % (AUTO) 0.1 % (0.0-5.0); LYMPHOCYTES # (AUTO) 1.6 K/uL (0.60-3.4); LYMPHOCYTES % (AUTO) 21.4 (10.0-50.0); MEAN CORPUSCULAR HEMOGLOBIN 29.1 pg (27.0-31.0); MEAN CORPUSCULAR VOLUME 88.4 fl (81.0-99.0); MONOCYTES # (AUTO) 0.4 K/uL (0.4-2.0); MONOCYTES % (AUTO) 5.2 (0-10); NEUTROPHILS # (AUTO) 5.3 K/ul (2.0-6.9); PLATELET COUNT 230 10^3/uL (140-440); RDW COEFFICIENT OF VARIATION 13.9 % (11.6-14.8); RED BLOOD COUNT 3.98 10^6/ul (4.20-5.40); WHITE BLOOD COUNT 7.29 K/ul (4.6-10.2)
[2021-06-28 08:15] LABS: CREATINE KINASE 47.6 U/L (30-135)
[2021-06-28 08:16] LABS: ALANINE AMINOTRANSFERASE 18.7 U/L (0-35); ALBUMIN 4.2 g/dL (3.5-5.0); ALKALINE PHOSPHATASE 80.3 U/L (53-141); ASPARTATE AMINO TRANSFERASE 19.8 U/L (14-36); BILIRUBIN,TOTAL 0.41 mg/dL (0.2-1.3); BLOOD UREA NITROGEN 22.5 mg/dL (7-17); CALCIUM 10.58 mg/dL (8.4-10.2); CHLORIDE 110.2 mmol/L (98-107); CREATININE 0.96 mg/dL (0.60-1.30); GLUCOSE 111.9 mg/dL (74-106); POTASSIUM 4.03 mmol/L (3.5-5.1); SODIUM 138.4 mmol/L (134.5-145); TOTAL PROTEIN 6.74 g/dL (6.3-8.2)
[2021-06-28 08:30] LABS: TROPONIN I < 0.012 ng/ml (0.0000-0.120)
[2021-06-28] MEDS: LOVENOX SUBCUT SCH (08:50)
[2021-06-28] MEDS ORDERED: WELLBUTRIN XL PO SCH (09:00)
[2021-06-28] MEDS ORDERED: ZYLOPRIM PO SCH (09:00)
[2021-06-28] MEDS ORDERED: ZESTRIL PO SCH (09:00)
[2021-06-28] MEDS ORDERED: CLARITIN PO SCH (09:00)
[2021-06-28] MEDS ORDERED: PRAVACHOL PO SCH (09:00)
--- NOTE | 2021-06-28 09:40 | PCM.PROG ---
Attending Provider: ATTENDING PROVIDER: Dr. TARIK MONROE DATE OF SERVICE: 06/28/21 SUBJECTIVE: This 65 year old /WHITE F was hospitalized 06/27/21 with chest pain, fairly atypical, sharp going through to the back with deep breathing and down both arms. No chest pain this morning. EKG sinus rhythm, no acute changes times two. Cardiac markers are negative. Telemetry no ST-T wave change from base line. REVIEW OF SYSTEMS: CONSTITUTIONAL: No night sweats. No fatigue, malaise, lethargy. No fever or chills. HEENT: Eyes: No visual changes. No eye pain. No eye discharge. ENT: No runny nose. No epistaxis. No sinus pain. No odynophagia. No congestion. RESPIRATORY: No cough, no congestion. No hemoptysis. No shortness of breath. CARDIOVASCULAR: No angina symptoms. No CHF symptoms. No atypical chest pain for CAD. No palpitations. No orthopnea.. GASTROINTESTINAL: No abdominal pain. No nausea or vomiting. No diarrhea or constipation. No hematemesis. No hematochezia. GENITOURINARY: No urgency. No frequency. No dysuria. No hematuria. No obstructive symptoms. No discharge. No pain. No significant abnormal bleeding. MUSCULOSKELETAL: No musculoskeletal pain; no joint swelling. NEUROLOGICAL: Awake, alert, oriented to time, place and person. No headache. No neck pain. No syncope. No seizures. No dizziness. PSYCHIATRIC: Not anxious. No depression. No suicidal thoughts. No homicidal thoughts. SKIN: No rash. No lesions. No wounds. ENDOCRINE: No unexplained weight loss. No weight gain. HEMATOLOGIC/LYMPHATIC: No anemia. No purpura. No petechiae. No prolonged or excessive bleeding. No palpable lymph nodes. PHYSICAL EXAMINATION: GENERAL: The patient is awake, alert and oriented, sitting in bed in no distress. VITAL SIGNS: Temperature 97.2 F, Pulse 55, Respiratory Rate 16, BP 112/62, Pulse Ox 97% HEENT: Head normocephalic, atraumatic. Eyes: Extraocular muscles are intact. Pupils are equal, round and reactive to light and accommodation. Ears: No lesions. Nose appeared normal. Throat: No exudate or erythema. NECK: Supple. No JVD, no carotid bruit. No lymphadenopathy or thyromegaly. LUNGS: Clear to auscultation. Percussion note normal. Chest symmetrical. HEART: S1, S2, no S3. No murmurs. No cyanosis or clubbing. No ascites. Pulses: Dorsalis pedis and posterior tibial pulses +1 to +2 both sides. ABDOMEN: Soft. Non-tender. Bowel sounds active. No CVA tenderness. No mass felt. EXTREMITIES: No edema. Full range of motion of all extremities, equal. NEUROLOGIC: No focal deficit. Cranial nerves II through XII are grossly intact. No headache, no double vision or headache. SKIN: Warm and dry. Intact. Turgor-normal. LYMPHATIC: No palpable lymph nodes/no lymphedema. MUSCULOSKELETAL: Normal joints with no swelling. Muscle tone is normal. LAB REVIEW: 06/28/21 07:59 06/28/21 07:59 06/28/21 07:59: Sodium 138.4, Potassium 4.03, Chloride 110.2 H, Carbon Dioxide 22.0, Anion Gap 10.23, BUN 22.5 H, Creatinine 0.96, Estimated GFR (MDRD) 58.00, BUN/Creatinine Ratio 23.43, Glucose 111.9 H, Calcium 10.58 H, Total Bilirubin 0.41, AST 19.8, ALT 18.7, Alkaline Phosphatase 80.3, Total Protein 6.74, Albumin 4.20, Globulin 2.54, Albumin/Globulin Ratio 1.65 06/28/21 07:59: WBC 7.29, RBC 3.98 L, Hgb 11.6 L, Hct 35.2 L, MCV 88.4, MCH 29.1, MCHC 33.0, RDW Coeff of [place] 13.9, Plt Count 230, Immature Gran % (Auto) 0.1, Neut % (Auto) 73.0, Lymph % (Auto) 21.4, [place] % (Auto) 5.2, Eos % (Auto) 0.0, Baso % (Auto) 0.3, Neut # (Auto) 5.3, Lymph # (Auto) 1.6, [place] # (Auto) 0.4, Eos # (Auto) 0.0, Baso # (Auto) 0.0, Immature Gran # (Auto) 0.0 06/27/21 23:00: Total Creatine Kinase 59.4, Troponin I < 0.012 06/27/21 17:36: SARS CoV-2 RNA Rapid GABBY Negative 06/27/21 15:35: TSH 1.540 06/27/21 15:35: Free T4 1.00 06/27/21 15:35: Sodium 139.6, Potassium 3.91, Chloride 110.3 H, Carbon Dioxide 22.1, Anion Gap 11.11, BUN 20.7 H, Creatinine 0.99, Estimated GFR (MDRD) 56.00, BUN/Creatinine Ratio 20.90, Glucose 108.3 H, Calcium 10.60 H, Total Bilirubin 0.42, AST 24.5, ALT 20.6, Alkaline Phosphatase 101.2, Total Creatine Kinase 77.6, Troponin I < 0.012, Total Protein 7.38, Albumin 4.58, Globulin 2.80, Albumin/Globulin Ratio 1.63 06/27/21 15:35: WBC 7.60, RBC 4.18 L, Hgb 12.3, Hct 37.0, MCV 88.5, MCH 29.4, MCHC 33.2, RDW Coeff of [place] 13.7, Plt Count 260, Immature Gran % (Auto) 0.3, Neut % (Auto) 76.5 H, Lymph % (Auto) 17.6, [place] % (Auto) 4.9, Eos % (Auto) 0.4, Baso % (Auto) 0.3, Neut # (Auto) 5.8, Lymph # (Auto) 1.3, [place] # (Auto) 0.4, Eos # (Auto) 0.0, Baso # (Auto) 0.0, Immature Gran # (Auto) 0.0 ASSESSMENT: Please see below. 1. Chest pain, Noncardiac PLAN: 1. Stress echo and echo 2. Carotid scan 3. Coronary artery disease risk factors discussed and how to modify them Plan and coordination of the patient's care discussed in the presence of Drawer In Hand and nurse. CONDITION: Stable. SCRIBED BY: Arnel GODINEZ scribed while in presence of service performed by Dr. TARIK MONROE on 06/28/21 ([id number])
[2021-06-28 09:41] VITALS: BP 123/70; TEMP 98.3
--- NOTE | 2021-06-28 11:09 | US ---
EXAM: Ultrasound bilateral carotid duplex HISTORY: Dizziness COMPARISON: None TECHNIQUE: Sonographic and color Doppler evaluation of the carotids were performed. FINDINGS: The right carotid is patent in appearance with scattered atherosclerotic plaque visualized. Carotid arteries are tortuous. The right ICA peak systolic velocity measures 105 cm/sec which is normal. The ICA / CCA peak systolic velocity ratio is 1.5 and ICA end-diastolic velocity is 34 cm/sec. The left carotid is patent in appearance with scattered atherosclerotic plaque visualized. The carot id arteries are tortuous. The left ICA peak systolic velocity measures 92 cm/sec which is normal. The left ICA / CCA peak systolic velocity ratio is 0.4 and ICA end-diastolic velocity is 31 cm/sec. Vertebral arteries demonstrate antegrade flow bilaterally. Color Doppler and wave spectral evaluation are normal. IMPRESSION: Mild atherosclerotic disease noted bilaterally with no evidence of stenosis
--- NOTE | 2021-06-28 12:46 | STRESSECHO ---
Date of Test: 06/28/2021 Ordering Physician: DR. 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 Reason for Exam: CHEST PAIN, SARCOIDOSIS Smoking History: NONE Height: 67" Weight: 160 LBS Current Medications: NEURONTIN, WELLBUTRIN XL, ZESTRIL, ZYLOPRIM Resting EKG: SINUS RHYTHM/ NO ACUTE CHANGES Target Heart Rate: 131/155 S-T SEGMENT STAGE MPH/GRADE HEART RATE BPM BLOOD PRESSURE MMHG RHYTHM +/- ELEVATION DEPRESSION SYMPTOMS AT REST 54 BPM 118/60 MMHG SR X NONE 1 1.7/10% 126 BPM 130/62 MMHG SR X NONE 2 2.5/12% 3 3.4/14% 4 4.2/16% 5 5.0/18% Immediately After 146 BPM SR X FATIGUE Minutes Post Exercise 1" 120 BPM 175/60 MMHG SR X NONE Minutes Post Exercise 5" 80 BPM 122/60 MMHG SR X NONE DURATION OF EXERCISE: 5:00 MAXIMUM HEART RATE REACHED: 146 BPM REASON FOR TERMINATION: FATIGUE 98% OXYGEN SATURATION WITH EXERCISE ON ROOM AIR METS 7.0 INTERPRETATION: 1. NO EVIDENCE OF ISCHEMIA BY ST-T WAVE 2. NO CHEST PAIN OR DISCOMFORT 3. THREE BEATS TRIGEMINY NOTED POST EXERCISE 4. BLOOD PRESSURE RESPONSE: NORMAL AT REST AND WITH EXERCISE NORMAL LEFT VENTRICLE CONTRACTILITY--RESTING AND POST EXERCISE MTDD
--- NOTE | 2021-06-28 12:48 | ECHOSTRESS ---
Date of Exam: 06/28/2021 Ordering Physician: DR. TARIK MONROE Reason for Echo: CHEST PAIN--STRESS TEST--NO ISCHEMIA M-Mode Normal Adult Results LV Dimensions Normal Adult Results AoV Opening excursions >1.6 LVEDD-base- 3.5-5.8 Ao root dimensions 2.0-3.7 LVESD-base- 3.1-4.6 L. Atrium dimensions 1.9-3.8 Post. Wall thickness 0.8-1.1 IV septum (thickness) 0.7-1.2 Post. Wall excursion 0.72-1.3 Septal motion Systolic motion R. Ventricular cavity 1.5-2.0 LVEF 60% Paradoxical septal wall motion 2-D: NORMAL LEFT VENTRICLE CONTRACTILITY--RESTING AND POST EXERCISE M-MODE: MV: AV: TV: PV: CHAMBER SIZE: WALL MOTION: NORMAL LEFT VENTRICLE CONTRACTILITY--RESTING AND POST EXERCISE PERICARDIUM: INTERPRETATION: 1. NORMAL LEFT VENTRICLE CONTRACTILITY--RESTING AND POST EXERCISE MTDD
[2021-06-28 13:30] LABS: ERYTHROCYTE SEDIMENTATION RATE 11 mm/hr (0-20)
--- NOTE | 2021-07-02 09:27 | ECHO2D ---
Date of Exam: 06/28/2021 Ordering Physician: DR. TARIK MONROE Room #: [id number] Reason for Echo: CHEST PAIN, HTN M-Mode Normal Adult Results LV Dimensions Normal Adult Results AoV Opening excursions >1.6 >1.6 LVEDD-base- 3.5-5.8 3.4 Ao root dimensions 2.0-3.7 2.8 LVESD-base- 3.1-4.6 L. Atrium dimensions 1.9-3.8 4.0 Post. Wall thickness 0.8-1.1 1.0 IV septum (thickness) 0.7-1.2 1.1 Post. Wall excursion 0.72-1.3 NORMAL Septal motion NORMAL Systolic motion R. Ventricular cavity 1.5-2.0 NORMAL LVEF 60% 70% Paradoxical septal wall motion NORMAL 2-D : 2-D M Mode Echocardiogram was performed using apical four chamber and left parasternal long and short axis views. Mitral, tricuspid and aortic valves appear to be normal. Contractility of the left ventricle seems to be normal, so is the cavity size. MILDLY ENLARGED LEFT ATRIAL CAVITY SIZE. Aortic root appears to be normal. There is no pericardial effusion. There is no thrombus noted in the left ventricle or left atrial cavity. M-MODE: MV: NORMAL AV: NORMAL TV: NORMAL PV: CHAMBER SIZE: MILDLY ENLARGED LEFT ATRIAL CAVITY WALL MOTION: NORMAL PERICARDIUM: NORMAL INTERPRETATION: 1. MILDLY ENLARGED LEFT ATRIAL CAVITY 2. NORMAL LEFT VENTRICLE CONTRACTILITY 3. NORMAL LEFT VENTRICLE SIZE MTDD
--- NOTE | 2021-07-02 10:34 | PN ---
DATE OF SERVICE: 06/27/21 ADMIT NOTE SUBJECTIVE: 65 year old white female seen earlier at the office sent home and started having chest pain center of the chest going to the back and arms. Practically no shortness of breath. She did not have any sweating. Pain lasted an hour and a half and was steady. In the beginning she was not able to take a deep breathing because of the pain she had with the deep breathing. She was seen and examined in the emergency room then was hospitalized. I examined the patient in the emergency room. She was oriented to time, place and person. REVIEW OF SYSTEMS: CONSTITUTIONAL: No night sweats. No fatigue, malaise, lethargy. No fever or chills. HEENT: Eyes: No visual changes. No eye pain. No eye discharge. ENT: No runny nose. No epistaxis. No sinus pain. No sore throat. No odynophagia. No congestion. RESPIRATORY: No cough, no congestion. No hemoptysis. No shortness of breath. CARDIOVASCULAR: No angina symptoms. No CHF symptoms. No atypical chest pain for CAD. No palpitations. No PND. No orthopnea. GASTROINTESTINAL: No abdominal pain. No nausea or vomiting. No diarrhea or constipation. No hematemesis. No hematochezia. GENITOURINARY: No urgency. No frequency. No dysuria. No hematuria. No obstructive symptoms. No discharge. No pain. No significant abnormal bleeding. MUSCULOSKELETAL: No musculoskeletal pain; no joint swelling. NEUROLOGICAL: No headache. No neck pain. No syncope. No seizures. No dizziness. PSYCHIATRIC: Not anxious. No depression. No suicidal thoughts. No homicidal thoughts. SKIN: No rash. No lesions. No wounds. ENDOCRINE: No unexplained weight loss. No weight gain. HEMATOLOGIC/LYMPHATIC: No anemia. No purpura. No petechiae. No prolonged or excessive bleeding. No palpable lymph nodes. PHYSICAL EXAMINATION: GENERAL: The patient is oriented to time, place and person. VITAL SIGNS: Temperature 98.5, pulse 80, respiratory rate 15, blood pressure 130/80. HEENT: Head normocephalic, atraumatic. Eyes: Extraocular muscles are intact. Pupils are equal, round and reactive to light and accommodation. Ears: No lesions. Nose appeared normal. Throat: No exudate or erythema. NECK: Supple. No JVD, no carotid bruit. No lymphadenopathy or thyromegaly. LUNGS: Decreased breath sounds but clear to auscultation. Percussion note normal. Chest symmetrical. HEART: S1, S2, no S3. No murmurs. No cyanosis or clubbing. No ascites. Pulses: Dorsalis pedis and posterior tibial pulses +1 bilaterally. ABDOMEN: Soft. Nontender. Bowel sounds active. No CVA tenderness. No mass felt. EXTREMITIES: No edema. Full range of motion of all extremities, equal. NEUROLOGIC: No focal deficit. Cranial nerves II through XII are grossly intact. No headache. No double vision. SKIN: Not dry. Intact. Turgor - normal. LYMPHATIC: No palpable lymph nodes/no lymphedema. MUSCULOSKELETAL: Normal joints with no swelling. Muscle tone is normal. LABS: EKG sinus rhythm, no acute changes. Cardiac markers were negative. The patient is COVID 19 negative. ASSESSMENT: 1. Chest pain, seems to be noncardiac. PLAN: 1. The patient is to be hospitalized with routine telemetry orders 2. Decadron 4mg IM along with 15mg Toradol 3. Routine telemetry orders with serial EKGS and Cardiac markers 4. If cardiovascular status is stable she will under go Echo and stress echo. TIME SPENT: More than 30 minutes. Plan and coordination of the patient's care discussed in the presence of nurse. ZULY
--- NOTE | 2021-07-02 10:59 | SSS ---
DATE OF SERVICE: 06/28/21 REASON FOR ADMISSION: Chest pain HISTORY OF PRESENT ILLNESS: 65 year old female was seen today in the office and was doing fine. It was her usual visit. Continuation of all the medications but in the afternoon the patient was work and developed chest pain. Center of the chest going through to the back and scapular area. More pronounced when she took a deep breath. Pain was also going to both arms, numbness. This lasted nearly an hour so she decided to come to the emergency room. In the emergency room the patient was seen and examined by the ER attending. She was hospitalized to rule out NV or ischemia. The patient's entire workup with cardiac markers and EKG were negative for any acute myocardial event. The patient did not have any associated shortness of breath or PND with it. REVIEW OF SYSTEMS: CONSTITUTIONAL: No night sweats. No fatigue, malaise, lethargy. No fever or chills. HEENT: Eyes: No visual changes. No eye pain. No eye discharge. ENT: No runny nose. No epistaxis. No sinus pain. No sore throat. No odynophagia. No ear pain. No congestion. RESPIRATORY: No cough, no congestion. No hemoptysis. No shortness of breath. CARDIOVASCULAR: No angina symptoms. No CHF symptoms. Chest pain as described for an hour, she was unable to take a deep breath. No palpitations. No orthopnea. GASTROINTESTINAL: No abdominal pain. No nausea or vomiting. No diarrhea or constipation. No hematemesis. No hematochezia. GENITOURINARY: No dysuria. No hematuria. No obstructive symptoms. No discharge. No pain. No significant abnormal bleeding. MUSCULOSKELETAL: No musculoskeletal pain. No joint swelling. NEUROLOGICAL: Awake, alert, oriented to time, place and person. No headache. No neck pain. No syncope. No seizures. No dizziness. PSYCHIATRIC: Not anxious. No depression. No suicidal thoughts. No homicidal thoughts. SKIN: No rash. No lesions. No wounds. ENDOCRINE: No unexplained weight loss. No weight gain. HEMATOLOGIC/LYMPHATIC: No anemia. No purpura. No petechiae. No prolonged or excessive bleeding. No palpable lymph nodes. PERSONAL/FAMILY HISTORY/SOCIAL HISTORY: The patient is nonsmoker. No alcohol abuse. 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 PHYSICAL EXAMINATION: GENERAL: The patient is oriented to time, place and person. HEENT: Head normocephalic, atraumatic. Eyes: Extraocular muscles are intact. Pupils are equal, round and reactive to light and accommodation. Ears: No lesions. Nose appeared normal. Throat: No exudate or erythema. NECK: Supple. No JVD, no carotid bruit. No lymphadenopathy or thyromegaly. LUNGS: Clear to auscultation. Percussion note normal. Chest symmetrical. HEART: S1, S2, no S3. No murmurs. No cyanosis or clubbing. No ascites. Pulses: Dorsalis pedis and posterior tibial pulses +1 to +2 bilaterally. ABDOMEN: Soft. Nontender. Bowel sounds active. No CVA tenderness. No mass felt. EXTREMITIES: No edema. Full range of motion of all extremities, equal. NEUROLOGIC: No focal deficit. Cranial nerves II through XII are grossly intact. No headache, no double vision or headache. SKIN: Not dry. Intact. Turgor - normal. LYMPHATIC: No palpable lymph nodes/no lymphedema. MUSCULOSKELETAL: Normal joints with no swelling. Muscle tone is normal. ALLERGIES: Venom-honey bee Venom-wasp MEDICATIONS: Omeprazole 40mg PO daily Wellbutrin 300mg PO QAM Tizanidine 4mg PO BID PRN Gabapentin 300mg PO bedtime Pravastatin 40mg PO daily Bupropion 150mg PO bedtime Lisinopril 20mg PO daily PROGRESS NOTES: See EMR. DIAGNOSES: 1. Chest pain etiology noncardiac 2. History of sarcoidosis which presented with chest pain 3. Dyslipidemia HOSPITAL COURSE: The patient was hospitalized and observed for acute NV or ischemia which the patient did have serial EKG's and cardiac markers were negative. Echo was negative with normal LV contractility with borderline LA cavity, normal valves. Stress echo was negative for ischemia with good exercise tolerance. The patient was reassured before discharge that patient underwent SED rate and CRP test. She is scheduled for CT scan of the chest with contrast. CONDITION: Stable. TIME SPENT: More than 70 minutes. [facility]
--- NOTE | 2021-07-02 11:00 | PN ---
06/27/21: Level 5 06/28/21: D as in discharge MTDD
== END 2021-06-28 13:20 | disposition home or self-care (01) | DRG 313 ==
LOC: ED 15:10 → MEDSURG A 18:51
PROVIDERS: ADMIT Internal Medicine; ATTEND Internal Medicine
DX: Z51.81 Encounter for therapeutic drug level monitoring; R07.9 Chest pain, unspecified; Z87.09 Personal history of other diseases of the respiratory system; Z20.822 Contact with and (suspected) exposure to COVID-19; Z79.899 Other long term (current) drug therapy; E78.5 Hyperlipidemia, unspecified